=== PATIENT | male | born 1965 | race Two or more races ===

== ENCOUNTER 2018-08-10 15:32 | Emergency (ER) | payer OTHER ==
[~2018-08-10] VITALS: Ht 190.5 cm; Wt 45.4 kg
[2018-08-10] MEDS ORDERED: ALEVE220 M1 (16:04)
[2018-08-10] MEDS ORDERED: NEURONTIN800 MG PO (23:38)
[2018-08-10] MEDS ORDERED: DIAZEPAM5 MG PO (23:38)
[2018-08-10] MEDS ORDERED: DEMEROL IJ (23:38)
== END 2018-08-10 23:43 | disposition home or self-care (01) ==
LOC: ER 15:32
DX: M62.830 Muscle spasm of back (principal); M54.5 Low back pain

== ENCOUNTER 2019-07-11 13:11 | Outpatient (CLI) | payer OTHER ==
[~2019-07-11 13:11] MED LIST: ALEVE220 M1; DEMEROL IJ; DIAZEPAM5 MG PO; NEURONTIN800 MG PO
== END 2019-07-11 13:22 | disposition home or self-care (01) ==
LOC: RAD 13:11
DX: B34.8 Other viral infections of unspecified site (principal); R05 Cough; M25.521 Pain in right elbow

== ENCOUNTER → 2020-08-29 | Outpatient (CLI) | payer OTHER | END | disposition home or self-care (01) | LOC: RAD 15:15 | PROVIDERS: ATTEND General Practice | DX: S99.821A Other specified injuries of right foot, initial encounter (principal) ==

== ENCOUNTER 2021-09-04 07:39 | Outpatient (CLI) | payer OTHER | END 2021-09-04 07:50 | disposition home or self-care (01) | LOC: SONOGRAMA 07:39 → MAMO-SONO 07:45 → SONOGRAMA 07:50 | PROVIDERS: ATTEND Internal Medicine Cardiovascular Disease | DX: R16.0 Hepatomegaly, not elsewhere classified (principal); R10.84 Generalized abdominal pain; J16.8 Pneumonia due to other specified infectious organisms ==

== ENCOUNTER 2021-10-12 04:27 | Emergency (ER) | payer OTHER ==
[~2021-10-12] VITALS: Ht 190.5 cm; Wt 97.5 kg
[2021-10-12] MEDS ORDERED: PERCOCET 10-321 EACH (04:39)
== END 2021-10-12 11:18 | disposition home or self-care (01) ==
LOC: ER 04:27
DX: R10.30 Lower abdominal pain, unspecified (principal)

== ENCOUNTER 2021-10-27 01:27 | Emergency (ER) | payer OTHER ==
[~2021-10-27] VITALS: Ht 190.5 cm; Wt 97.5 kg
[~2021-10-27 01:27] MED LIST changes: +PERCOCET 10-321 EACH
[2021-10-27] MEDS ORDERED: INTESTINEX680 M2 PO (06:41)
[2021-10-27] MEDS ORDERED: CARAFATE1 GM PO (06:41)
[2021-10-27] MEDS ORDERED: LEVSIN0.125 MG PO (06:41)
[2021-10-27] MEDS ORDERED: PROTONIX20 MG PO (06:41)
[2021-10-27] MEDS ORDERED: PEPCID AC20 MG PO (06:41)
[2021-10-27] MEDS ORDERED: ULTRACET PO (06:45)
== END 2021-10-27 07:12 | disposition home or self-care (01) ==
LOC: ER 01:27
DX: K52.9 Noninfective gastroenteritis and colitis, unspecified (principal); R10.32 Left lower quadrant pain; Z03.818 Encounter for observation for suspected exposure to other biological agents ruled out

== ENCOUNTER 2022-03-29 15:43 | Outpatient (CLI) | payer OTHER ==
[~2022-03-29 15:43] MED LIST changes: +CARAFATE1 GM PO; +INTESTINEX680 M2 PO; +LEVSIN0.125 MG PO; +PEPCID AC20 MG PO; +PROTONIX20 MG PO; +ULTRACET PO
== END 2022-03-29 15:50 | disposition home or self-care (01) ==
LOC: RAD 15:43
PROVIDERS: ATTEND Family Medicine
DX: M25.561 Pain in right knee (principal)

== ENCOUNTER 2022-04-21 13:57 | Outpatient (CLI) | payer OTHER | END 2022-04-21 14:03 | disposition home or self-care (01) | LOC: MRI 13:57 | PROVIDERS: ATTEND Family Medicine | DX: M25.561 Pain in right knee (principal) | CPT/HCPCS: 73721 ==

== ENCOUNTER → 2022-10-27 | Outpatient (CLI) | payer OTHER | END | disposition home or self-care (01) | LOC: TOM 15:13 | PROVIDERS: ATTEND Otolaryngology Otology & Neurotology | DX: M79.672 Pain in left foot (principal); J31.0 Chronic rhinitis ==

== ENCOUNTER 2022-11-03 07:36 | Outpatient (CLI) | payer OTHER | END 2022-11-03 08:12 | disposition home or self-care (01) | LOC: SONOGRAMA 07:36 | PROVIDERS: ATTEND Internal Medicine | DX: I71.40 Abdominal aortic aneurysm, without rupture, unspecified (principal) ==

== ENCOUNTER → 2022-12-03 | Outpatient (CLI) | payer OTHER | END | disposition home or self-care (01) | LOC: NUCLEAR 07:00 | PROVIDERS: ATTEND Internal Medicine | DX: I25.10 Atherosclerotic heart disease of native coronary artery without angina pectoris (principal) ==

== ENCOUNTER → 2023-07-18 | Outpatient (CLI) | payer OTHER | END | disposition home or self-care (01) | LOC: SONOGRAMA 07:24 | PROVIDERS: ATTEND Family Medicine | DX: N20.0 Calculus of kidney (principal) ==

== ENCOUNTER 2023-11-04 11:00 | Outpatient (CLI) | payer OTHER | END 2023-11-04 11:06 | disposition home or self-care (01) | LOC: MRI 11:00 | PROVIDERS: ATTEND Family Medicine | DX: M25.562 Pain in left knee (principal) | CPT/HCPCS: 73721 ==

== ENCOUNTER → 2024-08-20 | Outpatient (CLI) | payer OTHER | END | disposition home or self-care (01) | LOC: RAD 11:05 | PROVIDERS: ATTEND Orthopaedic Surgery | DX: M25.532 Pain in left wrist (principal) ==

== ENCOUNTER 2024-09-05 14:49 | Outpatient (CLI) | payer OTHER | END 2024-09-05 14:56 | disposition home or self-care (01) | LOC: RAD 14:49 | PROVIDERS: ATTEND Orthopaedic Surgery | DX: M79.641 Pain in right hand (principal) ==

== ENCOUNTER 2024-09-07 06:26 | Outpatient (CLI) | payer OTHER ==
[2024-09-07 07:24] LABS: URINE APPEARANCE Clear; URINE BILIRRUBIN Negative (NEGATIVE); URINE BLOOD Negative; URINE COLOR Yellow; URINE GLUCOSE Negative (NEGATIVE); URINE KETONE Negative (NEGATIVE); URINE LEUKOCYTE Negative; URINE NITRATE Negative
[2024-09-07 07:25] LABS: URINE BACTERIA 11.3 uL (0.0-1933); URINE EPITHELIAL CELLS 2.7 uL (0.0-38.8); URINE WBC 6.3 uL (0.0-23.2)
[2024-09-07 07:32] LABS: HEMATOCRIT 41.2 % (39.0-48.0); HEMOGLOBIN 13.9 g/dL (13-16.00); MEAN CELL VOLUME 88.4 fL (80.0-100.00); MEAN CORPUSCULAR HEMOGLOBIN 29.9 pg (27.00-32.0); MEAN CORPUSCULAR HGB CONC 33.8 g/dl (32.0-36.0); PLATELET COUNT 194 K/uL (150-450); RED BLOOD COUNT 4.66 M/uL (4.00-6.00); RED CELL DISTRIBUTION WIDTH 13.3 % (11.5-14.5)
[2024-09-07 07:35] LABS: URINE CAST 0.15 uL (0.0-1.40); URINE PROTEIN 100 (NEGATIVE)
[2024-09-07 07:47] LABS: INR 1.05; PARTIAL THROMBOPLASTIN TIME 27.5 SECONDS (22.0-34.0); PROTHROMBIN TIME 11.4 SECONDS (9.0-11.5)
[2024-09-07 07:53] LABS: ALBUMIN 4.2 gm/dL (3.4-5.0); BILIRUBIN TOTAL 0.71 mg/dL (0.3-1.2); CALCIUM 9.9 mg/dL (8.5-10.1); CREATININE SERUM 0.9 mg/dL (0.70-1.30); GFR 86.37; GLOBULINA 3.4 G/DL (2.4-3.5); POTASSIUM 4.66 mEq/L (3.5-5.1); TOTAL PROTEIN 7.6 gm/dL (6.4-8.2)
[2024-09-07 08:31] LABS: COL EPI 139 SECONDS (82-175)
== END 2024-09-07 07:19 | disposition home or self-care (01) ==
LOC: LAB 06:26
PROVIDERS: ATTEND Orthopaedic Surgery
DX: D64.9 Anemia, unspecified (principal); E88.89 Other specified metabolic disorders; D68.8 Other specified coagulation defects; N39.0 Urinary tract infection, site not specified; E11.9 Type 2 diabetes mellitus without complications; Z22.322 Carrier or suspected carrier of Methicillin resistant Staphylococcus aureus; I10 Essential (primary) hypertension; Z76.89 Persons encountering health services in other specified circumstances; T84.84XD Pain due to internal orthopedic prosthetic devices, implants and grafts, subsequent encounter

== ENCOUNTER 2024-09-17 05:40 | Day surgery (SDC) | payer OTHER ==
[~2024-09-17 05:40] MED LIST changes: +CANDESARTAN CILE8 MG PO
[2024-09-17] MEDS ORDERED: ISOPROPYL ALCOHOL 30 ML OUNCE TOP ONE (09:00)
[2024-09-17] MEDS ORDERED: CEFAZOLIN SODIUM 1,000 MG VIAL IV ONE (09:00)
== END 2024-09-17 12:20 | disposition home or self-care (01) ==
LOC: CIR.AMB 05:40
PROVIDERS: ATTEND Orthopaedic Surgery
DX: T84.84XD Pain due to internal orthopedic prosthetic devices, implants and grafts, subsequent encounter (principal); M65.832 Other synovitis and tenosynovitis, left forearm; S56.002A Unspecified injury of flexor muscle, fascia and tendon of left thumb at forearm level, initial encounter
CPT/HCPCS: 20680; 20900; 25260; L8699

== ENCOUNTER 2024-09-24 07:02 | Outpatient (CLI) | payer OTHER | END 2024-09-24 07:12 | disposition home or self-care (01) | LOC: TOM 07:02 | PROVIDERS: ATTEND Orthopaedic Surgery | DX: M79.641 Pain in right hand (principal) ==

== ENCOUNTER 2025-03-06 07:09 | Outpatient (CLI) | payer OTHER | END 2025-03-06 07:16 | disposition home or self-care (01) | LOC: SONOGRAMA 07:09 | PROVIDERS: ATTEND Family Medicine | DX: R74.01 Elevation of levels of liver transaminase levels (principal); K76.0 Fatty (change of) liver, not elsewhere classified ==

== ENCOUNTER 2025-03-13 07:42 | Outpatient (CLI) | payer OTHER | END 2025-03-13 07:44 | disposition home or self-care (01) | LOC: TOM 07:42 | PROVIDERS: ATTEND Family Medicine | DX: R10.84 Generalized abdominal pain (principal) | CPT/HCPCS: 74178; Q9965 ==

== ENCOUNTER 2025-05-23 07:08 | Outpatient (CLI) | payer OTHER | END 2025-05-23 07:10 | disposition home or self-care (01) | LOC: SONOGRAMA 07:08 | PROVIDERS: ATTEND Internal Medicine | DX: R10.9 Unspecified abdominal pain (principal) ==

== ENCOUNTER 2025-06-11 12:24 | Outpatient (CLI) | payer OTHER | END 2025-06-11 12:25 | disposition home or self-care (01) | LOC: NUCLEAR 12:24 | PROVIDERS: ATTEND Urology | DX: N13.30 Unspecified hydronephrosis (principal) | CPT/HCPCS: 78709; A9539 ==